=== PATIENT | female | born 1995 | race Two or more races ===

== ENCOUNTER → 2017-10-09 | Outpatient (CLI) | payer OTHER ==
[~2017-10-09] MED LIST: FENTANYL PF 100 MCG/2ML ONE; MIDAZOLAM 1 MG/ML, 5ML ONE
== END | disposition home or self-care (01) ==
LOC: RAD 10:01
PROVIDERS: ATTEND Physical Medicine & Rehabilitation
DX: M50.23 Other cervical disc displacement, cervicothoracic region (principal); M79.602 Pain in left arm; M79.601 Pain in right arm
CPT/HCPCS: 72141; 99156; 99157; J2250; J3010